=== PATIENT | female | born 1930 | race Caucasian/White ===

== ENCOUNTER 2016-12-26 01:49 | Inpatient (IN) | payer MEDICARE, OTHER ==
[~2016-12-26] VITALS: Ht 162.6 cm; Wt 65.6 kg
[2016-12-26 02:58] LABS: HEMATOCRIT 36.2 % (36.0-48.0); HEMOGLOBIN 11.7 g/dL (12-16); MCH 32.7 pg (26.0-34.0); MCHC 32.3 g/dL (31.0-37.0); MCV 101.1 fL (80.0-100.0); MEAN PLATELET VOLUME 10.2 fL (7.4-10.4); PLATELET COUNT 344 10x3/uL (130-400); RBC 3.58 10x6/uL (4.00-5.40); RDW 13.1 % (11.5-14.5); WBC 21.2 10x3/uL (4.8-10.8)
[2016-12-26 03:07] LABS: ALBUMIN 2.3 g/dL (3.4-5.0); ANION GAP 12.5 mmol/L (8-16); BILIRUBIN - TOTAL 0.33 mg/dL (0.2-1.3); CALCIUM 9.3 mg/dL (8.5-10.1); CARBON DIOXIDE 30.8 mmol/L (21.0-32.0); CREATININE - SERUM 0.9 mg/dL (0.6-1.3); POTASSIUM - SERUM 4.3 mmol/L (3.5-5.1); PROTEIN - SERUM 7.2 g/dL (6.4-8.2)
[2016-12-26 03:13] LABS: LYMPHOCYTES 2 % (15-50); MONOCYTES 5 % (2-11); NEUTROPHILS 87 % (40-80)
[2016-12-26 03:14] LABS: PLATELET ESTIMATE NORMAL
[2016-12-26 05:14] VITALS: BP 107/60; BMI 21.1
--- NOTE | 2016-12-26 07:25 | NUR ---
AWAKE AND ALERT, BUT CONFUSED TO TIME, PLACE AND SITUATION. ASSESSMENT PERFORMED PER FLOWSHEET. OXYGEN ON 2L VIA NC. RESPIRATIONS SHALLOW, BUT EVEN AND PT EXPERIENCING FREQUENT, DRY HACKING COUGH. BED ALARM ON AND CALL LIGHT IN REACH. DOOR OPEN FOR SAFETY. WILL CONTINUE WITH PLAN OF CARE.
[2016-12-26 08:00] VITALS: BP 129/74
[2016-12-26] MEDS ORDERED: ZOLOFT50 MG PO (10:46)
[2016-12-26] MEDS ORDERED: CLARITIN 10 MG10 MG PO (10:46)
[2016-12-26 11:05] LABS: APPEARANCE CLEAR (CLEAR); BACTERIA MODERATE /hpf (NONE SEEN); BILIRUBIN NEGATIVE (NEGATIVE); COLOR YELLOW (YELLOW); EPITHELIAL CELLS 0-5 /hpf (0-5); GLUCOSE NEGATIVE (NEGATIVE); KETONE NEGATIVE (NEGATIVE); LEUKOCYTE ESTERASE TRACE (NEGATIVE); MUCUS <1+ /lpf (NONE SEEN); NITRITE NEGATIVE (NEGATIVE); PROTEIN TRACE mg/dL (NEGATIVE); SPECIFIC GRAVITY 1.015 (1.005-1.020); UROBILINOGEN NORMAL (NORMAL); WHITE CELLS - URINE 0-5 /hpf (0-5)
--- NOTE | 2016-12-26 11:08 | NUR ---
SCHEDULED FLORAJEN ADMINISTERED AT THIS TIME. PT REMAINS CONFUSED. CALL LIGHT IN REACH AND BED ALARM ON. WILL CONTINUE WITH PLAN OF CARE.
[2016-12-26 11:35] VITALS: BP 119/71
[2016-12-26 12:12] LABS: % SATURATION 8 % (15-55); IRON 15 ug/dl (35-150); TOTAL IRON BIND CAPACITY 184 ug/dl (260-445); UNSAT IRON BIND CAPACITY 169 ug/dl (150-375)
[2016-12-26 14:58] VITALS: Ht 162.6 cm; Wt 65.6 kg
[2016-12-26 15:24] VITALS: BP 145/59
--- NOTE | 2016-12-26 19:10 | NUR ---
PT LYING IN BED AWAKE, PLEASANTLY CONFUSED, ASSESSMENT COMPLETED, NO DISTRESS NOTED, DENIES PAIN OR NEEDS, SR'S UP X2, BED ALARM ON, CL IN REACH, DOOR OPEN FOR EASY VIEWING, WILL MONITOR
[2016-12-26 20:00] VITALS: BP 116/60
--- NOTE | 2016-12-26 21:18 | NUR ---
LYING IN BED AWAKE, NO DISTRESS NOTED, DENIES NEEDS, SR'S UP, BED ALARM ON, DOOR OPEN, CL IN REACH
--- NOTE | 2016-12-26 23:35 | NUR ---
RESTING WITH EYES CLOSED, NO DISTRESS NOTED, NC IN PLACE, FALL PRECAUTIONS IN PLACE, ALARM ON, DOOR OPEN
--- NOTE | 2016-12-27 03:30 | NUR ---
STEPHANIE JALLOH ON TELE, ELI GAFFNEY PAGED TO ADDRESS HOME MEDS, AWAITING RETURN CALL
[2016-12-27] MEDS ORDERED: LIDOCAINE 5 % O35 GM TOPICAL (03:34)
[2016-12-27] MEDS ORDERED: K-DUR20 MEQ PO (03:35)
[2016-12-27] MEDS ORDERED: ZOLOFT50 MG PO (03:37)
[2016-12-27] MEDS ORDERED: DEPAKOTE SPRIN125 MG PO (03:39)
[2016-12-27] MEDS ORDERED: ULTRACET TABLET1 TAB PO (03:40)
[2016-12-27] MEDS ORDERED: XANAX0.25 MG PO (03:41)
[2016-12-27] MEDS ORDERED: FUROSEMIDE20 MG PO (03:42)
[2016-12-27] MEDS ORDERED: ZOCOR20 MG PO (03:43)
[2016-12-27] MEDS ORDERED: VOLTAREN100 GM TOPICAL (03:44)
[2016-12-27] MEDS ORDERED: HYDROCODON-ACE1 EAC7 PO (03:45)
[2016-12-27 06:54] LABS: BASOPHILS 0.1 % (0-2); EOSINOPHILS 0.1 % (0-7); HEMATOCRIT 36.8 % (36.0-48.0); HEMOGLOBIN 11.9 g/dL (12-16); IMMATURE GRANULOCYTES 1.2 % (0-5); LYMPHOCYTES 4.6 % (15-50); MCH 32.6 pg (26.0-34.0); MCHC 32.3 g/dL (31.0-37.0); MCV 100.8 fL (80.0-100.0); MEAN PLATELET VOLUME 9.9 fL (7.4-10.4); MONOCYTES 10.9 % (2-11); NEUTROPHILS 83.1 % (40-80); PLATELET COUNT 357 10x3/uL (130-400); RBC 3.65 10x6/uL (4.00-5.40); RDW 13.4 % (11.5-14.5); WBC 17.3 10x3/uL (4.8-10.8)
[2016-12-27 07:19] LABS: ALBUMIN 1.9 g/dL (3.4-5.0); ALKALINE PHOSPHATASE 95 U/L (46-116); ALT (SGPT) 29 U/L (10-68); BILIRUBIN - TOTAL 0.44 mg/dL (0.2-1.3); CALC OSMOLALITY 272 mosm/kg (275-300); CALCIUM 8.8 mg/dL (8.5-10.1); CARBON DIOXIDE 28.3 mmol/L (21.0-32.0); CHLORIDE - SERUM 100 mmol/L (98-107); CREATININE - SERUM 0.7 mg/dL (0.6-1.3); GLUCOSE 130 mg/dL (74-106); POTASSIUM - SERUM 3.6 mmol/L (3.5-5.1); PRO BNP 23257 pg/mL (0-450); PROTEIN - SERUM 6.4 g/dL (6.4-8.2); SODIUM 136 mmol/L (136-145); THYROID STIMULATING HORMONE 0.73 uIU/mL (0.36-3.74); UREA NITROGEN 11 mg/dL (7-18); eGFR NON AFRICAN AMERICAN 84 mL/min (90-120)
--- NOTE | 2016-12-27 07:45 | NUR ---
ASSESSMENT PER FLOW SHEET.PT WITHOUT DISTRESS.CONFUSED AT PRESENT.FALL PREVENTION IN PLACE.BED ALARM ON AND FUNCTIONING.DOOR OPEN TO MONITOR
[2016-12-27 08:17] VITALS: BP 135/66
[2016-12-27 08:17] LABS: FOLATE (FOLIC ACID) - SERUM 11.8 ng/mL (>3.0)
--- NOTE | 2016-12-27 11:00 | NUR ---
IV RED AND TENDER.IV DCD WITH CATH INTACT.ATTEMPTED TO RESITE X2 TO LEFT FOREARM USING ASEPTIC TECH.CALL TO VASCULAR NURSE WENDIE.
--- NOTE | 2016-12-27 14:25 | NUR ---
IV ACCESS-22 GAUGE INSERTED IN RIGHT HAND FOR ACCESS. WENDIE MALAVE RN
--- NOTE | 2016-12-27 15:25 | NUR ---
MEDS ORDERED PER MAR.IV RIGHT HAND PATENT.
[2016-12-27 16:03] VITALS: BP 128/62
--- NOTE | 2016-12-27 18:54 | NUR ---
REMAINS WITHOUT NEEDS,WITHOUT CHNAGE FROM INITIAL SHIFT ASSESSMENT.CONT PLAN OF CARE
[2016-12-27 20:00] VITALS: BP 137/80
--- NOTE | 2016-12-27 20:00 | NUR ---
ASSESSMENT PER FLOWSHEET. SALINE LOCK PATENT RT HAND SITE CLEAR. SR UP X2 CALL LIGHT WITHIN [employer]URINE BRIEF CHANGED AND BED CHANGED. TELM. SHOWS. SR WITH HR 65. BED ALARM BED ACTIVATED. O2 ON 5 L/M PER NC.
--- NOTE | 2016-12-27 21:30 | NUR ---
MEDS GIVEN PER MAR.
[2016-12-28] VITALS: BP 139/63
--- NOTE | 2016-12-28 | NUR ---
EYES CLOSED RESPIRATIONS WITH EASE AND UNLABORED.
[2016-12-28 04:00] VITALS: BP 152/73
[2016-12-28 07:23] LABS: ALBUMIN 1.9 g/dL (3.4-5.0); ALKALINE PHOSPHATASE 120 U/L (46-116); BILIRUBIN - TOTAL 0.39 mg/dL (0.2-1.3); CALCIUM 9.1 mg/dL (8.5-10.1); CARBON DIOXIDE 31.3 mmol/L (21.0-32.0); CHLORIDE - SERUM 100 mmol/L (98-107); CREATININE - SERUM 0.7 mg/dL (0.6-1.3); GLUCOSE 155 mg/dL (74-106); MAGNESIUM - SERUM 1.8 mg/dL (1.8-2.4); PHOSPHOROUS 3.1 mg/dL (2.5-4.9); POTASSIUM - SERUM 3.8 mmol/L (3.5-5.1); PROTEIN - SERUM 6.8 g/dL (6.4-8.2); SODIUM 136 mmol/L (136-145); eGFR NON AFRICAN AMERICAN 84 mL/min (90-120)
[2016-12-28 07:30] LABS: ALT (SGPT) 65 U/L (10-68); CALC OSMOLALITY 275 mosm/kg (275-300); UREA NITROGEN 15 mg/dL (7-18)
[2016-12-28 07:54] LABS: BASOPHILS 0.2 % (0-2); EOSINOPHILS 0 % (0-7); HEMATOCRIT 39.9 % (36.0-48.0); HEMOGLOBIN 13.1 g/dL (12-16); IMMATURE GRANULOCYTES 2.1 % (0-5); LYMPHOCYTES 9.7 % (15-50); MCH 32.8 pg (26.0-34.0); MCHC 32.8 g/dL (31.0-37.0); MEAN PLATELET VOLUME 10.5 fL (7.4-10.4); MONOCYTES 8.1 % (2-11); NEUTROPHILS 79.9 % (40-80); PLATELET COUNT 388 10x3/uL (130-400); RBC 3.99 10x6/uL (4.00-5.40); RDW 13.5 % (11.5-14.5)
--- NOTE | 2016-12-28 08:00 | NUR ---
PT CONFUSED IV TO RIGHT HAND SRX2 BED IN LOWEST POSITION CALL LIGHT WITHIN REACH WILL CONTINUE TO MONITOR
[2016-12-28 09:04] VITALS: BP 121/70
--- NOTE | 2016-12-28 10:54 | NUR ---
Rehab Prescreening Consult recieved and the patient was visited. She is a resident of [facility]. During our visit she was rambling non stop and making no sense. She did mention she needed her hearing aid which could have been the issue. Spoke to the Aster Cardona RN. She is going to call [facility] and try to get her hearing aids. Rehab will revisit then. Currently she does not appear to be able to follow direct commands. Jodie Haider RN Clinical Liaison, Rehab
[2016-12-28 12:44] VITALS: BP 152/73
--- NOTE | 2016-12-28 16:25 | NUR ---
Patient Name: LEIDY ZEPEDA Admission Status: ER Accout number: [id number] Admission Date: 12-26-2016 : 1930 Admission Diagnosis:CHRONIC OBSTRUCTIVE PULMON DISEASE W ACUTE LOWER RESP I Attending: ELY Current LOS: 2 Anticipated DC Date: 12-30-2016 Planned Disposition: Nursing Facility [facility] Primary Insurance: MEDICARE A & B Discharge Planning Comments: CM MET ANNIE MADDIE AND SPOKE WITH DANELLE ATKINSON REGARDING D/C NEEDS AND PLANS. PATIENT HAS BEEN A RESIDENT AT FACILITY SINCE 2013 AND WILL RETURN THERE AT DISCHARGE. PATIENT IS VERY [place] AND NEW HEARING AIDES HAVE BEEN ORDERED. PATIENT USES A WHEELCHAIR DAILY. PATIENTS PCP IS DR. GIGI GARCIA AND PHARMACY IS IN HOUSE AT FACILITY. CM WILL CONTINUE TO FOLLOW PATIENT WITH D/C NEEDS AND PLANS. PCP DR. [facility] HOUSE PHARMACY [facility] ([facility]) [phone] OR [phone] [place]: Aster Gunn How many steps to enter\exit or inside your home? 0 0 * PCP DR. GIGI GARCIA 0 * Pharmacy IN HOUSE 0 * Preadmission Environment Custodial Fdc 0 * Facility Name [facility] 0 * ADLs Partial Dependent 0 * Partial ADLs (Assistance needed) Ambulation Bathing Medication Management Transfers 0 * Equipment Wheelchair 0 * Other Equipment FACILITY HAS NEEDED EQUIPMENT 0 * List name and contact numbers for known caregivers / representatives who currently or will assist patient after discharge: ALDEN MEANS ([facility]) [phone] C [phone] 0 * Community resources currently utilized None 0 * Additional services required to return to the preadmission environment? Yes 0 * Can the patient safely return to the preadmission environment? Yes 0 * Has this patient been hospitalized within the prior 30 days at any hospital? No 0 Grand Total: 0
[2016-12-28 16:30] VITALS: BP 136/65
--- NOTE | 2016-12-28 17:03 | NUR ---
OT NOTE: PT REQUIRED MAX CUES FOR SEQUENCING OF TASK. PT COMPLETED BUE AAROM FOR INCREASED AX TOLERANCE AND AROM. PT COMPLETED BED MOB WITH MOD/MAX. PT COMPLETED SIMPLE GROOMING TASK WITH MIN/MOD A. THANK YOU, SMOOTH FRANKLIN/Dee
[2016-12-28 20:00] VITALS: BP 137/64
[2016-12-29 04:39] VITALS: BP 127/59
[2016-12-29 05:55] LABS: BASOPHILS 0.3 % (0-2); EOSINOPHILS 0.1 % (0-7); HEMATOCRIT 40.1 % (36.0-48.0); IMMATURE GRANULOCYTES 2.2 % (0-5); LYMPHOCYTES 11.5 % (15-50); MCH 32.6 pg (26.0-34.0); MCHC 32.4 g/dL (31.0-37.0); MCV 100.5 fL (80.0-100.0); MONOCYTES 11.3 % (2-11); NEUTROPHILS 74.6 % (40-80); PLATELET COUNT 390 10x3/uL (130-400); RBC 3.99 10x6/uL (4.00-5.40); RDW 13.7 % (11.5-14.5)
[2016-12-29 05:57] LABS: WBC 15.1 10x3/uL (4.8-10.8)
[2016-12-29 06:30] LABS: ALBUMIN 1.9 g/dL (3.4-5.0); BILIRUBIN - TOTAL 0.3 mg/dL (0.2-1.3); CALCIUM 8.7 mg/dL (8.5-10.1); CARBON DIOXIDE 32.1 mmol/L (21.0-32.0); CREATININE - SERUM 0.8 mg/dL (0.6-1.3); MAGNESIUM - SERUM 1.7 mg/dL (1.8-2.4); POTASSIUM - SERUM 3.1 mmol/L (3.5-5.1); PROTEIN - SERUM 6.3 g/dL (6.4-8.2)
--- NOTE | 2016-12-29 07:55 | NUR ---
PT CONFUSED RESP EVEN AND NONLABORED PT DENIES NEEDS AT THIS TIME IV TO RIGHT HAND PATENT AND INTACT AT THIS TIME SRX2 BED AT LOWEST SETTING CALL LIGHT WIHTIN REACH WILL CONTINUE TO MONITOR
[2016-12-29 08:20] LABS: IMMUNOGLOBULIN E 3 IU/mL (0-100)
[2016-12-29 09:36] VITALS: BP 130/65
[2016-12-29 11:49] VITALS: BP 128/66
[2016-12-29 20:54] VITALS: BP 82/39
[2016-12-30] VITALS: BP 126/51
--- NOTE | 2016-12-30 03:19 | NUR ---
ASSESSED AT THE BEAGINNING OF THE SHIFT.PT IS CONFUSED BUT DOES CHELSY ON A CONVERSATION WITH NURSE. WE ARE ASSISTING HER UP TO THE BEDSIDE COMMODE WITH ONE PERSON ASSIST. HER RIGHT HAND IV SITE WAS PUFFY SO IT IS NOW IN HER LEFT FOREARM. SHE HAS TELEMETRY IN PLACE SHOWING SINUS TONG AT 55. HER O2 IS IN PLACE PER N/C ORDERED. SHE HAS BEEN TURNING HERSELF WITH MININAL ASSIST FROM THE STAFF. THE BED IS LOW, RAILS UP X'S 2 WITH THE CALL LIGHT AT HAND.
[2016-12-30 04:00] VITALS: BP 143/49
[2016-12-30 05:46] LABS: BASOPHILS 0.2 % (0-2); EOSINOPHILS 0.4 % (0-7); HEMATOCRIT 36.6 % (36.0-48.0); HEMOGLOBIN 11.8 g/dL (12-16); IMMATURE GRANULOCYTES 4.2 % (0-5); LYMPHOCYTES 15.6 % (15-50); MCH 32.2 pg (26.0-34.0); MCHC 32.2 g/dL (31.0-37.0); MCV 99.7 fL (80.0-100.0); MEAN PLATELET VOLUME 9.9 fL (7.4-10.4); MONOCYTES 15.7 % (2-11); NEUTROPHILS 63.9 % (40-80); PLATELET COUNT 326 10x3/uL (130-400); RBC 3.67 10x6/uL (4.00-5.40); RDW 13.7 % (11.5-14.5)
[2016-12-30 05:49] LABS: WBC 11.1 10x3/uL (4.8-10.8)
[2016-12-30 05:58] LABS: ALBUMIN 1.8 g/dL (3.4-5.0); ALKALINE PHOSPHATASE 89 U/L (46-116); ALT (SGPT) 47 U/L (10-68); CALC OSMOLALITY 277 mosm/kg (275-300); CALCIUM 8.1 mg/dL (8.5-10.1); CARBON DIOXIDE 31.2 mmol/L (21.0-32.0); CHLORIDE - SERUM 101 mmol/L (98-107); CREATININE - SERUM 0.7 mg/dL (0.6-1.3); GLUCOSE 101 mg/dL (74-106); PROTEIN - SERUM 5.8 g/dL (6.4-8.2); SODIUM 138 mmol/L (136-145); UREA NITROGEN 18 mg/dL (7-18); eGFR NON AFRICAN AMERICAN 84 mL/min (90-120)
[2016-12-30 06:07] LABS: POTASSIUM - SERUM 2.7 mmol/L (3.5-5.1)
--- NOTE | 2016-12-30 07:35 | NUR ---
PATIENT RECEIVED IN MID RODRIGUEZ POSITION RESTING WITH EYES CLOSED. RESPIRATIONS EVEN AND UNLABORED. SIDE RAILS UP X2. BED IN LOW POSITION. CALL LIGHT IN REACH.
--- NOTE | 2016-12-30 08:40 | NUR ---
ALERT IN BED EATING BREAKFAST. TOLERATING WELL. SCHEDULED MEDICATION ADMINISTERED WITH APPLESAUCE. DENIES NEEDS. SIDE RAILS UP X2. BED IN LOW POSITION. CALL LIGHT IN REACH.
[2016-12-30 08:56] VITALS: BP 146/62
--- NOTE | 2016-12-30 10:00 | NUR ---
PATIENT SITTING UP IN CHAIR AT BEDSIDE. NO SIGNS OF DISTRESS NOTED. CALL LIGHT IN REACH. DOOR OPEN.
[2016-12-30 10:21] LABS: MAGNESIUM - SERUM 1.9 mg/dL (1.8-2.4); PHOSPHOROUS 2.8 mg/dL (2.5-4.9)
--- NOTE | 2016-12-30 10:43 | NUR ---
Reviewed this patient's chart again this morning for the IRF. She remains confused, disoriented and does not follow commands per the OT notes. Recommend she return to her skilled bed at discharge. Spoke to the Aster Cardona RN re this. Jodie Haider RN Clinical Liaison, Rehab
[2016-12-30 12:36] VITALS: BP 120/44
--- NOTE | 2016-12-30 13:00 | NUR ---
SITTING UP IN CHAIR ALERT AND EATING LUNCH. TOLERTING WELL. SCHEDULED MEDICATION ADMINISTERED. POTASSIUM REPLACED PER PROTOCOL. DENIES NEEDS. CALL LIGHT IN REACH. NATALYA ALARM ON.
--- NOTE | 2016-12-30 13:59 | NUR ---
NUTRITION MONITORING & EVAL CHART REVIEWED. PT SLEEPING. TOLERATING FULL LIQUID DIET. WILL MONITOR DIET ADVANCEMENT, PT PROGRESS. RD FOLLOWING
--- NOTE | 2016-12-30 14:10 | NUR ---
PATIENT IN RIGHT LATERAL POSITION RESTING WITH EYES CLOSED. RESPIRATIONS EVEN AND UNLABORED. WAKES EASY. SCHEDULED MEDICATION ADMINISTERED. SCDS ON BILATERALLY. SIDE RAILS UP X2. BED IN LOW POSIION. CALL LIGHT IN REACH. BED ALARM ON.
[2016-12-30 16:15] VITALS: BP 139/53
--- NOTE | 2016-12-30 17:15 | NUR ---
PATIENT REPOSITIONED IN BED. DINNER TRAY SET UP. DENIES NEEDS. SIDE RAILS UP X2. BED IN LOW POSITION. CALL LIGHT IN REACH.
[2016-12-31] VITALS: BP 124/62
[2016-12-31 04:00] VITALS: BP 133/70
--- NOTE | 2016-12-31 05:18 | NUR ---
PATIENT SLEEPING SUPINE IN BED. HOB 30 DEGREES. RR EVEN AND UNLABORED. O2 @ 3L VIA NC. 0 S/S OF DISTRESS. B/A ON. SRX2. BED LOW. CALL LIGHT WITHIN REACH.
[2016-12-31 07:02] LABS: BASOPHILS 0.1 % (0-2); EOSINOPHILS 0.5 % (0-7); HEMATOCRIT 37.4 % (36.0-48.0); HEMOGLOBIN 12.1 g/dL (12-16); IMMATURE GRANULOCYTES 2.7 % (0-5); LYMPHOCYTES 13.8 % (15-50); MCH 32.2 pg (26.0-34.0); MCHC 32.4 g/dL (31.0-37.0); MCV 99.5 fL (80.0-100.0); MEAN PLATELET VOLUME 9.7 fL (7.4-10.4); MONOCYTES 12.7 % (2-11); NEUTROPHILS 70.2 % (40-80); PLATELET COUNT 316 10x3/uL (130-400); RBC 3.76 10x6/uL (4.00-5.40); RDW 13.7 % (11.5-14.5); WBC 13.2 10x3/uL (4.8-10.8)
[2016-12-31 07:13] LABS: ANION GAP 9.5 mmol/L (8-16); BILIRUBIN - TOTAL 0.34 mg/dL (0.2-1.3); CALCIUM 7.9 mg/dL (8.5-10.1); CARBON DIOXIDE 28.3 mmol/L (21.0-32.0); POTASSIUM - SERUM 3.8 mmol/L (3.5-5.1); PROTEIN - SERUM 5.8 g/dL (6.4-8.2)
[2016-12-31 07:17] LABS: CREATININE - SERUM 0.9 mg/dL (0.6-1.3)
--- NOTE | 2016-12-31 08:10 | NUR ---
ASSESSMENT PER FLOW SHEET.PT WITHOUT DISTRESS.FALL PREVENTION IN PLACE WITH BED ALARM BED ON AND FUNCTIONING.CALL LIGHT IN REACH
[2016-12-31 09:48] VITALS: BP 149/59
--- NOTE | 2016-12-31 11:08 | NUR ---
REMAINS IN CHAIR.POEY MAT ON AND FUNCTIONING.DOOR OPEN.
[2016-12-31 13:02] VITALS: BP 140/58
--- NOTE | 2016-12-31 15:16 | NUR ---
up to [facility].more redness noted to buttocks and robby.cream applied.
[2016-12-31 16:02] VITALS: BP 137/51
--- NOTE | 2016-12-31 16:10 | NUR ---
UP TO [facility] AND ASSIST WITH BRUSHING TEETH.PT WIHTOUT NEEDS.BED ALARM ON.DOOR OPEN
--- NOTE | 2016-12-31 22:36 | NUR ---
FULL LINEN CHANGE COMPLETED.
[2016-12-31 23:14] VITALS: BP 130/59
--- NOTE | 2017-01-01 04:23 | NUR ---
NURSE AND WAN SUPPORT SPECIALIST ARE IN THE ROOM TAKING VITAL SIGNS AND TURNING PATIENT. PT IS AWAKE AND NO DISTRESS IS NOTED. BED IS LOW, RAILS UP X'S 2 WITH THE CALL LIGHT AT HAND.
[2017-01-01 05:06] VITALS: BP 155/58
[2017-01-01 05:34] LABS: BASOPHILS 0.1 % (0-2); EOSINOPHILS 0.7 % (0-7); HEMATOCRIT 36.1 % (36.0-48.0); HEMOGLOBIN 11.6 g/dL (12-16); IMMATURE GRANULOCYTES 2.9 % (0-5); LYMPHOCYTES 16.9 % (15-50); MCH 32.1 pg (26.0-34.0); MCHC 32.1 g/dL (31.0-37.0); MEAN PLATELET VOLUME 9.6 fL (7.4-10.4); MONOCYTES 10.2 % (2-11); NEUTROPHILS 69.2 % (40-80); PLATELET COUNT 342 10x3/uL (130-400); RBC 3.61 10x6/uL (4.00-5.40); RDW 13.9 % (11.5-14.5); WBC 12.4 10x3/uL (4.8-10.8)
[2017-01-01 05:52] LABS: ALBUMIN 1.9 g/dL (3.4-5.0); BILIRUBIN - TOTAL 0.37 mg/dL (0.2-1.3); CARBON DIOXIDE 28.5 mmol/L (21.0-32.0); CREATININE - SERUM 0.8 mg/dL (0.6-1.3); PROTEIN - SERUM 5.9 g/dL (6.4-8.2)
[2017-01-01 05:53] LABS: ANION GAP 8.7 mmol/L (8-16); POTASSIUM - SERUM 3.2 mmol/L (3.5-5.1)
--- NOTE | 2017-01-01 07:35 | NUR ---
PT CONFUSED AWAKENS EASILY. RESP EVEN AND NONLABORED PT ON BACK IN BED IV TOLEFT FOREARM PATENT AND INTACT SRX2 BED AT LOWEST SETTING CALL LIGHT WITHIN REACH WILL CONTINUE TO MONITOR
[2017-01-01 09:11] VITALS: BP 171/71
[2017-01-01 12:20] VITALS: BP 118/46
[2017-01-01 16:23] VITALS: BP 124/46
[2017-01-01 19:00] VITALS: BP 146/56
--- NOTE | 2017-01-01 19:30 | NUR ---
WENT TO GIVE PATIENT HER [address] AND SHE STATED THAT SHE DID NTO WANT IT AT THIS TIME. EDUCATED THAT I WOULD BE BACK AT 0100.
--- NOTE | 2017-01-01 19:48 | NUR ---
RECEIVED RESTING IN BED WITH EYES CLOSED. RESPONDS TO VOICE. CALM AND COOPERATIVE WITH CARE AND ASSESSMENT. CONFUSED. O2 AT 3 L/NC. REFUSING SCD'S. BED ALARM ON. CALLLIGHT IN REACH.
--- NOTE | 2017-01-02 02:52 | NUR ---
RESTING IN BED EYES CLOSED. NO SIGNS OF DISTRESS. CALL LIGHT IN REACH. BED ALARM IS ON
[2017-01-02 04:00] VITALS: BP 187/25
[2017-01-02 06:41] LABS: BASOPHILS 0.1 % (0-2); EOSINOPHILS 0.8 % (0-7); HEMATOCRIT 36.8 % (36.0-48.0); HEMOGLOBIN 12.3 g/dL (12-16); LYMPHOCYTES 15.1 % (15-50); MCH 33.3 pg (26.0-34.0); MCHC 33.4 g/dL (31.0-37.0); MCV 99.7 fL (80.0-100.0); MEAN PLATELET VOLUME 9.8 fL (7.4-10.4); MONOCYTES 9.2 % (2-11); NEUTROPHILS 72.8 % (40-80); PLATELET COUNT 348 10x3/uL (130-400); RBC 3.69 10x6/uL (4.00-5.40); RDW 13.9 % (11.5-14.5); WBC 13.7 10x3/uL (4.8-10.8)
[2017-01-02 07:07] LABS: ALKALINE PHOSPHATASE 74 U/L (46-116); ALT (SGPT) 35 U/L (10-68); CALC OSMOLALITY 275 mosm/kg (275-300); CARBON DIOXIDE 29.1 mmol/L (21.0-32.0); CHLORIDE - SERUM 104 mmol/L (98-107); CREATININE - SERUM 0.7 mg/dL (0.6-1.3); GLUCOSE 83 mg/dL (74-106); POTASSIUM - SERUM 3.6 mmol/L (3.5-5.1); PROTEIN - SERUM 5.9 g/dL (6.4-8.2); SODIUM 139 mmol/L (136-145); UREA NITROGEN 10 mg/dL (7-18); eGFR NON AFRICAN AMERICAN 84 mL/min (90-120)
--- NOTE | 2017-01-02 07:35 | NUR ---
PT CONFUSED TO EVERYTHING EXCEPT SELF. RESP EVEN AND NONLABORED IV TO LEFT FOREARM PATENT AND INTACT SRX2 BED AT LOWEST SETTING CALL LIGHT WITHIN REACH WILL CONTINUE TO MONITOR
[2017-01-02 08:31] VITALS: BP 142/63
[2017-01-02 12:32] VITALS: BP 115/49
[2017-01-02 16:09] VITALS: BP 131/57
--- NOTE | 2017-01-02 20:00 | NUR ---
ASSESSMENT PER FLOWSHEET. IV PATENT LEFT FOREARM PROCAL AT 30CC'S/HR NS AT 30CC'S/HR SITE CLEAR. INC URINE LINENS CHANGED. BED ALARM BED ACTIVATED. SR UP X2 CALL LIGHT WITHIN REACH.
--- NOTE | 2017-01-02 21:30 | NUR ---
MEDS GIVEN PER MAR.
[2017-01-03] VITALS: BP 112/52
--- NOTE | 2017-01-03 00:24 | NUR ---
EYES CLOSED RESPIRATIONS WITH EASE AND UNLABORED. O2 ON3L/M PER NC. TELM. SHOWS SR WITH OCCAS. PVC'S. PT REMAINS CONFUSED AT TIMES AND [place].
--- NOTE | 2017-01-03 03:00 | NUR ---
AWAKE UP TO [facility] PT ALSO VOIDED IN THE BED. BATH WITH LINENS CHANGED.
[2017-01-03 04:00] VITALS: BP 118/52
--- NOTE | 2017-01-03 05:18 | NUR ---
RESTING QUIETLY SR UP X2 CALL LIGHT WITHIN REACH. BED ALARM BED ON.
--- NOTE | 2017-01-03 06:12 | NUR ---
MEDS GIVEN PER MAR. NO CHANGES IN ASSESSMENT.
[2017-01-03 06:14] LABS: BASOPHILS 0.1 % (0-2); EOSINOPHILS 0.7 % (0-7); HEMATOCRIT 38.3 % (36.0-48.0); HEMOGLOBIN 12.7 g/dL (12-16); IMMATURE GRANULOCYTES 1.3 % (0-5); LYMPHOCYTES 17.3 % (15-50); MCH 33.2 pg (26.0-34.0); MCHC 33.2 g/dL (31.0-37.0); MEAN PLATELET VOLUME 9.6 fL (7.4-10.4); MONOCYTES 8.7 % (2-11); NEUTROPHILS 71.9 % (40-80); PLATELET COUNT 334 10x3/uL (130-400); RBC 3.83 10x6/uL (4.00-5.40); RDW 14.2 % (11.5-14.5); WBC 12.2 10x3/uL (4.8-10.8)
--- NOTE | 2017-01-03 07:10 | NUR ---
REPORT RECEIVED FROM TREE KILLER NURSE. CALL LIGHT IN REACH.
[2017-01-03 07:20] LABS: ALBUMIN 1.9 g/dL (3.4-5.0); ALKALINE PHOSPHATASE 66 U/L (46-116); ALT (SGPT) 26 U/L (10-68); CALC OSMOLALITY 276 mosm/kg (275-300); CALCIUM 8.1 mg/dL (8.5-10.1); CARBON DIOXIDE 31.6 mmol/L (21.0-32.0); CHLORIDE - SERUM 103 mmol/L (98-107); CREATININE - SERUM 0.7 mg/dL (0.6-1.3); GLUCOSE 83 mg/dL (74-106); POTASSIUM - SERUM 3.4 mmol/L (3.5-5.1); PROTEIN - SERUM 5.8 g/dL (6.4-8.2); SODIUM 139 mmol/L (136-145); UREA NITROGEN 12 mg/dL (7-18); eGFR NON AFRICAN AMERICAN 84 mL/min (90-120)
[2017-01-03 08:17] VITALS: BP 120/63
--- NOTE | 2017-01-03 08:36 | NUR ---
ASSESSMENT COMPLETED. AM MEDS ADMINISTERED. KCL PER ELECTROLYTE PROTOCOL. REFUSES SCDs. BED ALARM ON. CALL LIGHT IN REACH. WILL CONTINUE WITH PLAN OF CARE.
--- NOTE | 2017-01-03 10:18 | NUR ---
NUTRITION MONITORING & EVAL CHART REVIEWED, PT VISIT. SALES TRAINEE ASSISTING WITH FEEDING FULL LIQUID DIET. PROVIDED ENSURE. WILL ORDER FOR ALL MEALS. RD FOLLOWING
--- NOTE | 2017-01-03 10:58 | NUR ---
LYING IN BED WITH EYES CLOSED. RESP EVEN AND UNLABORED. CALL LIGHT IN REACH.
--- NOTE | 2017-01-03 11:14 | NUR ---
DEMETRIUS MORA PER ORDER. DENIES NEEDS. BED ALARM IS ON. CALL LIGHT IN REACH.
[2017-01-03 12:01] VITALS: BP 102/43
--- NOTE | 2017-01-03 13:00 | NUR ---
LAB IN ROOM TO DRAW BLOOD FOR POTASSIUM LEVEL.
--- NOTE | 2017-01-03 14:05 | NUR ---
TESSALON PERLES PO AND CEFEPIME IVPB. BED ALARM ON. CALL LIGHT IN REACH.
[2017-01-03 15:58] VITALS: BP 107/48
--- NOTE | 2017-01-03 16:28 | NUR ---
NEW BOTTLE OF PROCALAMINE PRIMED WITH NEW TUBING. DENIES PAIN OR NEEDS AT THIS TIME. CALL LIGHT IN REACH.
--- NOTE | 2017-01-03 18:33 | NUR ---
NO CHANGES IN INITIAL ASSESSMENT. STILL REFUSES SCDs. BED ALARM ON. CALL LIGHT IN REACH. WILL CONTINUE WITH PLAN OF CARE.
[2017-01-03 20:00] VITALS: BP 112/48
--- NOTE | 2017-01-03 20:00 | NUR ---
ASSESSMENT PER FLOWSHEET. IV PATENT RT ARM OF NS AT 30CC'S/HR PROCAL AT 30CC'S/HR SITE CLEAR. PT REMAINS CONFUSED WITH GARBLED SPEECH. INC URINE COMPLETE LINENS CHANGED.
--- NOTE | 2017-01-03 22:00 | NUR ---
MEDS GIVEN PO PER SEP.
[2017-01-04] VITALS: BP 145/51
--- NOTE | 2017-01-04 | NUR ---
INC URINE LINES CHANGED.
--- NOTE | 2017-01-04 02:30 | NUR ---
EYES CLOSED RESPIRATIOS WITH EASE AND UNLABORED.
[2017-01-04 04:00] VITALS: BP 157/58
--- NOTE | 2017-01-04 04:11 | NUR ---
MEDS GIVEN PER SEP. EYES CLOSED RESPIURATIONS WITH EASE AND UNLABORED.
--- NOTE | 2017-01-04 04:12 | NUR ---
ESTING QUIETLY NO CHANGES IN ASSESSMENT.
[2017-01-04 05:09] LABS: BASOPHILS 0.1 % (0-2); EOSINOPHILS 0.3 % (0-7); HEMATOCRIT 36.2 % (36.0-48.0); HEMOGLOBIN 11.7 g/dL (12-16); IMMATURE GRANULOCYTES 1.1 % (0-5); MCH 32.2 pg (26.0-34.0); MCHC 32.3 g/dL (31.0-37.0); MCV 99.7 fL (80.0-100.0); MEAN PLATELET VOLUME 9.8 fL (7.4-10.4); MONOCYTES 7.8 % (2-11); NEUTROPHILS 75.7 % (40-80); PLATELET COUNT 347 10x3/uL (130-400); RBC 3.63 10x6/uL (4.00-5.40); WBC 13.2 10x3/uL (4.8-10.8)
[2017-01-04 05:21] LABS: ALKALINE PHOSPHATASE 70 U/L (46-116); ALT (SGPT) 20 U/L (10-68); BILIRUBIN - TOTAL 0.23 mg/dL (0.2-1.3); CALC OSMOLALITY 279 mosm/kg (275-300); CALCIUM 8.3 mg/dL (8.5-10.1); CARBON DIOXIDE 32.4 mmol/L (21.0-32.0); CHLORIDE - SERUM 103 mmol/L (98-107); CREATININE - SERUM 0.5 mg/dL (0.6-1.3); GLUCOSE 104 mg/dL (74-106); POTASSIUM - SERUM 4.7 mmol/L (3.5-5.1); PROTEIN - SERUM 5.2 g/dL (6.4-8.2); SODIUM 138 mmol/L (136-145); UREA NITROGEN 23 mg/dL (7-18); eGFR NON AFRICAN AMERICAN > 90 mL/min (90-120)
--- NOTE | 2017-01-04 07:15 | NUR ---
REPORT RECEIVED FROM CHAIN PERSON NURSE. CALL LIGHT IN REACH.
[2017-01-04 08:44] VITALS: BP 168/69
--- NOTE | 2017-01-04 09:30 | NUR ---
IN CHAIR PER PHYSICAL THERAPY. TOLERATING WELL AT THIS TIME.
--- NOTE | 2017-01-04 10:12 | NUR ---
ASSESSMENT COMPLETED. AM MEDS ADMINISTERED. REFUSES SCDs. CHAIR ALARM ON. CALL LIGHT IN REACH. WILL CONTINUE WITH PLAN OF CARE.
--- NOTE | 2017-01-04 12:50 | NUR ---
PATIENT SITTING UP IN CHAIR AT BEDSIDE. NO SIGNS OF DISTRESS NOTED. RESPIRATORY THERAPY PRESENT. CALL LIGHT IN REACH.
--- NOTE | 2017-01-04 13:10 | NUR ---
IV TO RIGHT FOREARM WITH SWELLING. DC'D WITH TIP INTACT.
[2017-01-04 13:37] VITALS: BP 123/53
--- NOTE | 2017-01-04 13:54 | EC ---
PATIENT:LEIDY ZEPEDA DATE OF SERVICE: 12/26/16 SEX: F MEDICAL RECORD: [id number] DATE OF : 30 LOCATION:[id number] AGE OF PATIENT: 86 ADMISSION DATE: 12/26/16 REFERRING PHYSICIAN: INTERPRETING PHYSICIAN: ARTHUR NAVARRO M.D. ECHOCARDIOGRAM REPORT ECHO CHARGES 4 ECHO COMPLETE CLINICAL DIAGNOSIS: AFIB ECHOCARDIOGRAPHIC MEASUREMENTS (adult normal given) AC root (d.<3.7cm) 4.4 LV Septum d (<1.2 cm> 1.3 Valve Excursion 1.6 LV Septum (systole) 1.5 Left Atria (s.<4.0cm> 3.8 LVPW d(<1.2cm) 1.0 RV (d.<2.3cm) 3.5 LVPW (sytole) 1.6 LV diastole(<5.6CM) 4.4 MV E-F(>70mm/sec) LV systole 2.9 LVOT Diameter 1.6 MV exc.(>10mm) 1.6 Est.ejection fraction (50-75%) Pericardial Effusion N DOPPLER: LVIT A 90.0 E 58.0 LA RVSP 43 LVOT 82 AOP1/2T Asc. Ao 113 RVOT 57 RA PA 109 AV Gradient Peak 5.09 AV Mean 2.60 AV Area 1.7 MV Gradient Peak 5.85 MV Mean 1.95 MV Area COMMENTS: Production Support Consultant: Kaleb VINSON Drug Abuse Resistance Education Officer:Kaleb Navarro TAPE# PACS DATE OF SERVICE: 12/27/2016 ECHOCARDIOGRAM REPORT REFERRING PHYSICIAN: Dr. Camden Luis. INDICATION: Atrial fibrillation. DESCRIPTION: Left ventricle demonstrates left ventricular hypertrophy. No wall motion abnormalities are noted. Estimated ejection fraction is 55%. Mitral ECHOCARDIOGRAM REPORT [id number] LEIDY ZEPEDA valve is structurally normal. There is mild regurgitation noted. Left atrium is normal in size. The aortic valve is trileaflet. There is no stenosis or regurgitation seen. Right ventricle is mildly dilated. Tricuspid valve is normal. There is mild regurgitation noted. Right atrium is mildly dilated. There is no pericardial effusion noted. IMPRESSION: 1. Left ventricular hypertrophy with preserved ejection of 55%. 2. Moderate mitral regurgitation. 3. Moderate tricuspid regurgitation. TRANSINT:[id number] Voice Confirmation ID: [id number] DOCUMENT ID: [id number] ARTHUR NAVARRO M.D. at 1354 CC: [id number] DICTATION DATE: 12/27/161846 SHEET METAL WORKER HELPER: 12/28/16 0014 ADM IN [facility] [address] [id number]
--- NOTE | 2017-01-04 15:58 | NUR ---
IV RESITED TO LEFT WRIST WITH 24 GA X3 STICKS. AFTERNOON MEDS ADMINISTERED. WILL CONTINUE TO MONITOR.
[2017-01-04 16:35] VITALS: BP 118/62
--- NOTE | 2017-01-04 16:57 | NUR ---
NO NEEDS VOICED AT THIS TIME. CALL LIGHT IN REACH.
--- NOTE | 2017-01-04 17:08 | NUR ---
OT NOTE: PT COMPLETED SIMPLE GROOMING TASK WITH MOD VERBAL CUES. PT COMPLETED BED MOB AND POSITIONING WITH SBA. PT COMPLETED SITTING BALANCE WITH CGA. PT COMPLETED BUE AROM EXS FOR INCREASED AX TOLERANCE WITH ADLS. THANK YOU, SMOOTH FRANKLIN/Dee
--- NOTE | 2017-01-04 18:09 | NUR ---
NO CHANGES IN INITIAL ASSESSMENT. CALL LIGHT IN REACH. WILL CONTINUE WITH PLAN OF CARE. STILL REFUSES SCDs. BED ALARM ON.
[2017-01-04 20:00] VITALS: BP 94/47
--- NOTE | 2017-01-04 20:00 | NUR ---
ASSESSMENT PER FLOWSHEET. IV PATENT LEFT FOREARM WITH NS AT 30CC'S/HR PROCAL AT 30CC'S/HR. SR UP X3 CALL LIGHT WITHIN REACH BED ALARM BED ACTIVATED. REFUSES TO WEAR SCD'S. CONFUSED AND TALKS TO SELF ALOT. DOOR OPENED.
--- NOTE | 2017-01-04 21:00 | NUR ---
INC URINE LINENS CHANGED. MEDS GIVEN PO WITH WATER.
[2017-01-05] VITALS: BP 110/60
--- NOTE | 2017-01-05 | NUR ---
EYES CLOSED RESPRATIONS WITH EASE AND UNLABORED.
--- NOTE | 2017-01-05 01:30 | NUR ---
IV IN LEFT ARM INFILTRATED. REMOVED WITH TIP INTACT.RESITED IV TO RT WRIST #24G ANGIOCATH X1 ATTEMPT GOOD BLOOD RETURN NOTED. RESUMED IV FLUIDS.
--- NOTE | 2017-01-05 03:48 | NUR ---
EYES CLOSED RESPIRATIONS WITH EASE AND UNLABORED.
[2017-01-05 04:00] VITALS: BP 112/56
[2017-01-05 06:18] LABS: BASOPHILS 0.1 % (0-2); EOSINOPHILS 0.7 % (0-7); HEMATOCRIT 37.9 % (36.0-48.0); HEMOGLOBIN 12.3 g/dL (12-16); IMMATURE GRANULOCYTES 0.7 % (0-5); LYMPHOCYTES 16.3 % (15-50); MCH 32.5 pg (26.0-34.0); MCHC 32.5 g/dL (31.0-37.0); MEAN PLATELET VOLUME 9.7 fL (7.4-10.4); MONOCYTES 8.3 % (2-11); NEUTROPHILS 73.9 % (40-80); PLATELET COUNT 321 10x3/uL (130-400); RBC 3.79 10x6/uL (4.00-5.40); RDW 14.3 % (11.5-14.5); WBC 14.5 10x3/uL (4.8-10.8)
[2017-01-05 06:35] LABS: ALBUMIN 2.1 g/dL (3.4-5.0); ALKALINE PHOSPHATASE 69 U/L (46-116); ALT (SGPT) 17 U/L (10-68); BILIRUBIN - TOTAL 0.23 mg/dL (0.2-1.3); CALC OSMOLALITY 280 mosm/kg (275-300); CALCIUM 8.5 mg/dL (8.5-10.1); CHLORIDE - SERUM 103 mmol/L (98-107); CREATININE - SERUM 0.4 mg/dL (0.6-1.3); GLUCOSE 85 mg/dL (74-106); POTASSIUM - SERUM 4.2 mmol/L (3.5-5.1); PROTEIN - SERUM 5.5 g/dL (6.4-8.2); SODIUM 140 mmol/L (136-145); UREA NITROGEN 22 mg/dL (7-18); eGFR NON AFRICAN AMERICAN > 90 mL/min (90-120)
--- NOTE | 2017-01-05 08:06 | NUR ---
SCHEDULED MEDICATIONS ADMINISTERED AT THIS TIME. ASSESSMENT PERFORMED PER FLOWSHEET. IV TO RIGHT WRIST PATENT WITH NO S/S OF INFILTRATION PRESENT. CALL LIGHT IN REACH, WILL CONTINUE WITH PLAN OF CARE. BED ALARM ON AND DOOR REMAINS OPEN.
[2017-01-05 10:13] VITALS: BP 150/39
[2017-01-05] MEDS ORDERED: NICODERM C1 PATCH .1 TRANSDERM (10:27)
[2017-01-05] MEDS ORDERED: SINGULAIR10 MG PO (10:28)
[2017-01-05] MEDS ORDERED: MUCINEX DM ER1 EAC1 PO (10:28)
[2017-01-05] MEDS ORDERED: BETAPACE 80 MG80 MG PO (10:28)
[2017-01-05] MEDS ORDERED: BENZONATATE200 MG PO (10:28)
[2017-01-05] MEDS ORDERED: PREDNISONE20 MG PO (10:29)
[2017-01-05] MEDS ORDERED: PULMICORT0.5 MG/21 UPD (10:29)
[2017-01-05] MEDS ORDERED: FLUTICASONE PRO16 GM NASAL (10:29)
[2017-01-05] MEDS ORDERED: FLORAJEN3 CAPS460 MG PO (10:29)
[2017-01-05] MEDS ORDERED: NYSTATIN ORAL SU5 ML PO (10:30)
--- NOTE | 2017-01-05 10:30 | NUR ---
UP IN THE CHAIR PER PHYSICAL THERAPY X1 ASSIST. CALL LIGHT IN REACH AND NATALYA MAT ALARM ON AND IN WORKING ORDER FOR FALL PRECAUTIONS. WILL CONTINUE WITH PLAN OF CARE.
[2017-01-05] MEDS ORDERED: XOPENEX 0.0.63 MG/3 UPD (10:31)
[2017-01-05] MEDS ORDERED: ATROVENT 0.02%2.5 ML UPD (10:31)
[2017-01-05] MEDS ORDERED: BROVANA15 MCG/2 M INH (10:31)
--- NOTE | 2017-01-05 11:00 | NUR ---
ASSISTED PT BACK TO BED WITH PHYSICAL THERAPIES ASSISTANCE. [facility] PROVIDED FOR INCONTINENT EPISODE OF URINE AT THIS TIME. BOUDREAX'S APPLIED TO BUTTOCK DUE TO REDNESS FROM INCONTINENCE. BED ALARM ON AND CALL LIGHT IN REACH. OXYGEN CHECKED AND 93% ON 2L VIA NC. OXYGEN TURNED OFF, WILL RECHECK OXYGEN IN 5 MINUTES.
--- NOTE | 2017-01-05 11:05 | NUR ---
OXYGEN LEVEL CHECKED AND OXYGEN SATURATION 89% ON ROOM AIR. PLACED OXYGEN BACK ON PATIENT AND NOTIFIED GAYLE GAGE.
--- NOTE | 2017-01-05 11:19 | NUR ---
CM spoke to patient about discharge. She said "thank God" Shannan at [facility] notified of discharge and she will call back with a van time and she is aware of the need for o2. Clinical faxed. CM will continue to assist
--- NOTE | 2017-01-05 11:40 | NUR ---
SPOKE WITH PT'S SON, ALDEN MEANS [phone], AND LET HIM KNOW THAT THE PT WOULD BE TRANSFERRING BACK TO THE NURSING FACILITY AT TODAY. HE STATED THAT HE WAS VERY UNSATISFIED WITH THE FACT THAT HE WOULD CALL "MULTIPLE TIMES A DAY AND REMAIN ON HOLD FOR 10-15 MINUTES" BEFORE HE COULD SPEAK TO SOMEONE ABOUT HIS MOTHER. I APOLOGIZED TO THE SON AND HE STATED, "THAT'S OKAY JUST PASS THE MESSAGE."
[2017-01-05] MEDS ORDERED: CEFUROXIME250 MG PO ×2 (11:43→12:01)
[2017-01-05] MEDS ORDERED: PREDNISONE10 MG PO ×2 (11:43→12:02)
[2017-01-05 12:27] VITALS: BP 126/47
--- NOTE | 2017-01-05 13:45 | NUR ---
REPORT CALLED MATEUSZ OQUENDO AT THIS TIME FROM [facility].
--- NOTE | 2017-01-05 15:03 | NUR ---
Patient being discharged today to [facility] to a SKILLED by via their personal van. RN called and let family know that she was being transferred this afternoon.
--- NOTE | 2017-01-05 15:17 | NUR ---
DISCHARGED TO [facility] BY TRANSPORTATION AND WHEELCHAIR.
== END 2017-01-05 15:15 | DRG 291 ==
LOC: D.ER 01:49 → D.MS 04:05
PROVIDERS: Family Medicine; Internal Medicine Pulmonary Disease; ADMIT Family Medicine
DX: I50.31 Acute diastolic (congestive) heart failure (principal); J18.9 Pneumonia, unspecified organism; G93.41 Metabolic encephalopathy; J44.0 Chronic obstructive pulmonary disease with (acute) lower respiratory infection; N39.0 Urinary tract infection, site not specified; F17.203 Nicotine dependence unspecified, with withdrawal; J44.1 Chronic obstructive pulmonary disease with (acute) exacerbation; G30.9 Alzheimer's disease, unspecified; F02.80 Dementia in other diseases classified elsewhere, unspecified severity, without behavioral disturbance, psychotic disturbance, mood disturbance, and anxiety; I25.10 Atherosclerotic heart disease of native coronary artery without angina pectoris; I10 Essential (primary) hypertension; K21.9 Gastro-esophageal reflux disease without esophagitis; I48.91 Unspecified atrial fibrillation; F32.9 Major depressive disorder, single episode, unspecified; I08.1 Rheumatic disorders of both mitral and tricuspid valves; D50.9 Iron deficiency anemia, unspecified; E87.6 Hypokalemia

== ENCOUNTER 2017-01-07 00:01 | Emergency (ER) | payer MEDICARE, OTHER ==
[2016-12-26 14:58] VITALS: BMI 21.1
[~2017-01-07 00:01] MED LIST: ATROVENT 0.02%2.5 ML UPD; BENZONATATE200 MG PO; BETAPACE 80 MG80 MG PO; BROVANA15 MCG/2 M INH; CEFUROXIME250 MG PO; CLARITIN 10 MG10 MG PO; DEPAKOTE SPRIN125 MG PO; FLORAJEN3 CAPS460 MG PO; FLUTICASONE PRO16 GM NASAL; FUROSEMIDE20 MG PO; HYDROCODON-ACE1 EAC7 PO; K-DUR20 MEQ PO; LIDOCAINE 5 % O35 GM TOPICAL; MUCINEX DM ER1 EAC1 PO; NICODERM C1 PATCH .1 TRANSDERM; NYSTATIN ORAL SU5 ML PO; PREDNISONE10 MG PO; PREDNISONE20 MG PO; PULMICORT0.5 MG/21 UPD; SINGULAIR10 MG PO; ULTRACET TABLET1 TAB PO; VOLTAREN100 GM TOPICAL; XANAX0.25 MG PO; XOPENEX 0.0.63 MG/3 UPD; ZOCOR20 MG PO; ZOLOFT50 MG PO
== END 2017-01-07 01:50 | disposition home or self-care (01) ==
LOC: D.ER 00:01
DX: S09.90XA Unspecified injury of head, initial encounter (principal); W19.XXXA Unspecified fall, initial encounter; Y93.89 Activity, other specified; Y92.012 Bathroom of single-family (private) house as the place of occurrence of the external cause; Y99.9 Unspecified external cause status; S62.307A Unspecified fracture of fifth metacarpal bone, left hand, initial encounter for closed fracture; G30.9 Alzheimer's disease, unspecified; F02.80 Dementia in other diseases classified elsewhere, unspecified severity, without behavioral disturbance, psychotic disturbance, mood disturbance, and anxiety